=== PATIENT | female | born 1990 | race American Indian/Alaskan Native ===

== ENCOUNTER 2020-12-27 15:11 | Emergency (ER) | payer SELFPAY ==
[2020-12-27 15:35] VITALS: BP 121/84
--- NOTE | 2020-12-27 16:14 | XRay Report ---
CHEST 2 VIEWS INDICATION / CLINICAL INFORMATION: chest pain and tightness. COMPARISON: None available. FINDINGS: SUPPORT DEVICES: None. HEART / MEDIASTINUM: No significant abnormality. LUNGS / PLEURA: No significant pulmonary or pleural abnormality. No pneumothorax. ADDITIONAL FINDINGS: No significant additional findings. IMPRESSION: 1. No acute findings. Signer Name: Sánchez Issa MD Signed: 12/27/2020 4:09 PM Workstation Name: [id number]
--- NOTE | 2021-01-01 10:53 | Electrocardiograph Report ---
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
== END 2020-12-28 04:19 | disposition left against medical advice (07) ==
LOC: ED 15:11
DX: R06.02 Shortness of breath (principal); Z53.21 Procedure and treatment not carried out due to patient leaving prior to being seen by health care provider
CPT/HCPCS: 71046; 93005